=== PATIENT | female | born 1995 | race Caucasian/White ===

== ENCOUNTER 2021-07-20 14:56 | Inpatient (IN) | payer MEDICAID ==
[~2021-07-20] VITALS: Ht 162.6 cm; Wt 74.9 kg
[2021-07-20] MEDS ORDERED: HALOPERIDOL 5 MG TABLET PO PRN (22:15)
[2021-07-20] MEDS ORDERED: LORazepam 2 MG TABLET PO PRN (22:15)
[2021-07-20 22:19] VITALS: BP 137/76
[2021-07-21 00:47] VITALS: BP 130/86
[2021-07-21] MEDS ORDERED: MAG HYDROX/AL HYDROX/SIMETH ES 30 ML SUSPENSION UDCUP PO PRN (07:30)
[2021-07-21] MEDS ORDERED: ALBUTEROL SULFATE HFA 90 MCG/PUFF 8 GM INHALER IH PRN (07:30)
[2021-07-21] MEDS ORDERED: ACETAMINOPHEN 325 MG TABLET PO PRN (07:30)
[2021-07-21] MEDS ORDERED: GuaiFENesin/D-METHORPHAN [SUGAR-FREE] 200-20MG/10 ML SYRUP UDCUP PO PRN (07:30)
[2021-07-21] MEDS ORDERED: IBUPROFEN 400 MG TABLET PO PRN (07:30)
[2021-07-21] MEDS ORDERED: CloNIDine HCL 0.1 MG TABLET PO PRN (07:30)
[2021-07-21] MEDS ORDERED: DOCUSATE SODIUM 100 MG CAPSULE PO PRN (07:30)
[2021-07-21] MEDS ORDERED: PETROLATUM,WHITE 28 GM JELLY TP PRN (07:30)
[2021-07-21] MEDS ORDERED: ONDANSETRON HCL 4 MG TABLET PO PRN (07:30)
[2021-07-21] MEDS ORDERED: MAGNESIUM HYDROXIDE SUSPENSION 30 ML UDCUP PO PRN (07:30)
[2021-07-21] MEDS ORDERED: LOPERAMIDE HCL 2 MG CAPSULE PO PRN (07:30)
[2021-07-21] MEDS ORDERED: NICOTINE 14 MG/24 HOUR PATCH TD PRN (07:30)
[2021-07-21 07:43] LABS: BASOPHILS % (AUTO) 0.2 % (0.0-2.0); EOSINOPHILS % (AUTO) 0.7 % (1.0-6.0); HEMATOCRIT 37.4 % (36-46); HEMOGLOBIN 12.9 g/dL (12.0-16.0); LYMPHOCYTES # (AUTO) 2.1 K/uL (1.0-4.8); LYMPHOCYTES % (AUTO) 25.1 % (22.0-44.0); MEAN CORPUSCULAR HEMOGLOBIN 31.1 pg (26.0-34.0); MEAN CORPUSCULAR HGB CONC 34.4 G/dL (31.0-37.0); MEAN CORPUSCULAR VOLUME 90 fL (80-100); MONOCYTES # (AUTO) 0.9 K/uL (0.1-1.0); MONOCYTES % (AUTO) 10.5 % (2.0-9.0); NEUTROPHILS # (AUTO) 5.3 K/uL (1.8-7.7); NEUTROPHILS % (AUTO) 63.5 % (40.0-70.0); PLATELET COUNT (AUTO) 227 K/uL (150-450); RED BLOOD CELL COUNT(AUTO) 4.15 MIL/uL (4.00-5.20); RED CELL DISTRIBUTION WIDTH 13.6 % (11.5-14.5)
[2021-07-21 07:45] LABS: HEMOGLOBIN A1C 5.6 % (3.8-5.6)
[2021-07-21 08:05] VITALS: BP 126/84
[2021-07-21 08:12] LABS: ALANINE AMINOTRANSFERASE 102 U/L (12-78); ALBUMIN 3.5 g/dL (3.4-5.0); ALKALINE PHOSPHATASE 66 U/L (46-116); ANION GAP 4 mmol/L (8-16); ASPARTATE AMINOTRANSFERASE 40 U/L (15-37); BILIRUBIN,TOTAL 0.2 mg/dL (0.1-1.0); CALCIUM, TOTAL 8.7 mg/dL (8.8-10.5); CARBON DIOXIDE 28 mmol/L (22-29); CHLORIDE 105 mmol/L (98-107); CHOL/HDL RATIO 3.9 (3.9-5.7); CHOLESTEROL 206 mg/dL (131-200); CREATININE 0.61 mg/dL (0.60-1.30); GLOMERULAR FILTR. RATE CALC > 60 mL/min (>60); GLUCOSE,RANDOM 105 mg/dL (70-110); HDL CHOLESTEROL 53 mg/dL (40-60); LDL CHOL (CALC.) 121 mg/dL (0-130); POTASSIUM 3.8 mmol/L (3.5-5.1); SODIUM SERUM 137 mmol/L (136-145); THYROID STIMULATING HORMONE 1.42 uIU/mL (0.36-3.74); TRIGLYCERIDES 160 mg/dL (15-150); UREA NITROGEN, BLOOD 15 mg/dL (7-18)
[2021-07-21] MEDS: FLUoxetine HCL 20 MG CAPSULE PO SCH (10:55)
[2021-07-21] MEDS: METHADONE HCL 10 MG TABLET PO SCH (10:56)
[2021-07-21 17:16] VITALS: BP 110/75
[2021-07-21] MEDS: ZOLPIDEM TARTRATE 10 MG TABLET PO PRN (20:21)
[2021-07-22 00:28] VITALS: BP 102/71
[2021-07-22] MEDS: METHADONE HCL 10 MG TABLET PO SCH (08:01)
[2021-07-22] MEDS: FLUoxetine HCL 20 MG CAPSULE PO SCH (08:01)
[2021-07-22 08:13] VITALS: BP 122/68
[2021-07-22] MEDS ORDERED: DiphenhydrAMINE HCL 25 MG CAPSULE PO ONE (09:45)
[2021-07-22] MEDS ORDERED: DiphenhydrAMINE HCL 50 MG/ML VIAL IM ONE (09:45)
[2021-07-22 16:10] VITALS: BP 136/77
[2021-07-22] MEDS: ZOLPIDEM TARTRATE 10 MG TABLET PO PRN (21:10)
[2021-07-23 06:06] VITALS: BP 137/87
[2021-07-23 08:09] VITALS: BP 137/91
[2021-07-23] MEDS: METHADONE HCL 10 MG TABLET PO SCH (08:27)
[2021-07-23] MEDS: FLUoxetine HCL 20 MG CAPSULE PO SCH (08:27)
[2021-07-23] MEDS ORDERED: FLUO20CA30 PO (12:31)
== END 2021-07-23 15:06 | disposition home or self-care (01) | DRG 751 ==
LOC: B3A 22:04
DX: F33.2 Major depressive disorder, recurrent severe without psychotic features (principal); E78.5 Hyperlipidemia, unspecified; F11.20 Opioid dependence, uncomplicated; T40.412A Poisoning by fentanyl or fentanyl analogs, intentional self-harm, initial encounter; F14.10 Cocaine abuse, uncomplicated; R74.01 Elevation of levels of liver transaminase levels; Y92.89 Other specified places as the place of occurrence of the external cause; Z91.5 Personal history of self-harm; Z79.899 Other long term (current) drug therapy
CPT/HCPCS: 80053; 80061; 83036; 84443; 85025; 87081; J1200